=== PATIENT | male | born 1985 | race Hispanic/Latino ===

== ENCOUNTER 2017-11-20 12:23 | Emergency (ER) | payer BC ==
[2017-11-20 12:33] VITALS: BMI 30.2
[2017-11-20] MEDS ORDERED: Albuterol-Ipratrop 3 mg / 0.5 (3 ml) UD INH STA (12:57)
--- NOTE | 2017-11-20 12:57 | ED PDOC ---
History of Present Illness History of Present Illness: 31 year old male presents to the emergency department complaining of a sore throat, cough productive of green phlegm, and fever onset three days ago. Patient states he is also currently nauseous, but denies any vomiting. Patient has noticed dark color to urine as well but denies any dysuria. No abd pain, chest pain or back pain. No recent travel, no known sick contacts. PMD: [facility] HPI: Influenza Time Seen by Provider: 11/20/17 12:36 Chief Complaint: Flu-like Symptoms Chief Complaint (Provider): sore throat, cough, fever History Per: Patient Exam Limitations: no limitations Onset/Duration Of Symptoms: Days (x3) Past Medical History Reviewed: Historical Data, Nursing Documentation, Vital Signs Vital Signs: Last Vital Signs Temp 101.9 F H 11/20/17 12:31 Pulse 85 11/20/17 12:31 Resp 20 11/20/17 12:31 BP 137/69 11/20/17 12:31 Pulse Ox 97 11/20/17 12:31 - Medical History PMH: Asthma Other PMH: leatha miller - Surgical History Surgical History: No Surg Hx - Family History Family History: States: No Known Family Hx - Living Arrangements Living Arrangements: With Friends/Others - Social History Current smoker - smoking cessation education provided: No Alcohol: Occasional Drugs: Cannabis - Home Medications Home Medications: Ambulatory Orders Medication Instructions Recorded Albuterol HFA [Ventolin HFA 90 1 puff IH ASDIR #1 unit 11/20/17 mcg/actuation (8 g)] Azithromycin [Zithromax] 250 mg PO DAILY #6 tab 11/20/17 Benzonatate 200 mg PO TID PRN #20 capsule 11/20/17 Ibuprofen [Motrin Tab] 800 mg PO Q8 PRN #20 tab 11/20/17 - Allergies Allergies/Adverse Reactions: Allergies Allergy/AdvReac Type Severity Reaction Status Date / Time No Known Allergies Allergy Verified 11/20/17 12:30 Review of Systems ROS Statement: Except As Marked, All Systems Reviewed And Found Negative Constitutional: Positive for: Fever, Chills ENT: Positive for: Throat Pain, Throat Swelling Cardiovascular: Negative for: Chest Pain Respiratory: Positive for: Cough (productive of green phlegm) Gastrointestinal: Positive for: Nausea. Negative for: Vomiting, Abdominal Pain , Diarrhea Genitourinary Male: Positive for: Other (dark colored urine). Negative for: Dysuria Neurological: Negative for: Headache, Dizziness Physical Exam - Reviewed Nursing Documentation Reviewed: Yes Vital Signs Reviewed: Yes - Physical Exam Appears: Positive for: Well, Non-toxic Head Exam: Positive for: ATRAUMATIC, NORMAL INSPECTION, NORMOCEPHALIC Skin: Positive for: Normal Color. Negative for: Rash Eye Exam: Positive for: Normal appearance ENT: Positive for: Nasal Congestion, Pharyngeal Erythema, Tonsillar Swelling Cardiovascular/Chest: Positive for: Regular Rate, Rhythm Respiratory: Positive for: Wheezing (bilateral on inhalation and expiration) Gastrointestinal/Abdominal: Positive for: Soft. Negative for: Tenderness, Distended, Guarding, Rebound Back: Negative for: L CVA Tenderness, R CVA Tenderness Extremity: Positive for: Normal ROM Lymphatic: Positive for: Adenopathy (bilateral anterior cervical lymphadenopathy ) Neurologic/Psych: Positive for: Alert, Oriented (x3) Medical Decision Making Medical Decision Making: Time: 12:37 Initial Impression: 31 year old male with URI symptoms Initial Plan: --Influenza A B --Rapid Strep --Throat Culture --Duoneb 3ml INH --CMP --Urine Dip --CBC with differential --Chest X-ray --Motrin 600mg PO --Sodium Chloride 0.9% 1000ml IV --Tylenol 975mg PO --Blood Culture --Throat Culture --Decadron IV 8 mg Neb treatment Pre peak flow: 300 Post peak flow: 350 Wheezing resolved after treatment Patient aware of all diagnostic testing results. He feels better after medications administered in the ED. Repeat temp is 98.3. Rx given for zithromax, tessalon perles, ventolin inhaler and motrin. Advised fluids, rest and follow up with PMD in 2-3 days. Scribe Attestation: Documented by Alina Erazo, acting as a scribe for Macarena Ahuja PA-C. Provider Scribe Attestation: All medical record entries made by the Scribe were at my direction and personally dictated by me. I have reviewed the chart and agree that the record accurately reflects my personal performance of the history, physical exam, medical decision making, and the department course for this patient. I have also personally directed, reviewed, and agree with the discharge instructions and disposition. - Laboratory Results Result Diagrams: 11/20/17 13:00 11/20/17 13:00 Urine dip results: Negative for: Leukocyte Esterase, Blood, Nitrate, Ketones, Glucose, Bilirubin, Protein - ECG O2 Sat by Pulse Oximetry: 97 (RA) Pulse Ox Interpretation: Normal - Other Rad CXR X-Ray: Interpreted by Me, Viewed By Me X-Ray Interpretation: no acute finding Disposition - Clinical Impression Clinical Impression: Tonsillitis, Acute bronchitis - Patient ED Disposition Is Patient to be Admitted: No Counseled Patient/Family Regarding: Studies Performed, Diagnosis, Need For Followup, Rx Given - Disposition Referrals: [facility] [Outside] Disposition: Routine/Home Disposition Time: 14:34 Condition: IMPROVED Additional Instructions: Take rx meds as directed. Rest and drink plenty of fluids. Follow up with primary care doctor in 2-3 days. Prescriptions: Albuterol HFA [Ventolin HFA 90 mcg/actuation (8 g)] 1 puff IH ASDIR #1 unit Azithromycin [Zithromax] 250 mg PO DAILY #6 tab Benzonatate 200 mg PO TID PRN #20 capsule PRN Reason: Cough Ibuprofen [Motrin Tab] 800 mg PO Q8 PRN #20 tab PRN Reason: Pain, Moderate (4-7) Instructions: Sore Throat, Adult (DC), Acute Bronchitis Forms: [facility] (Azerbaijani) Results - Lab Results Lab Results: 11/20/17 11/20/17 11/20/17 13:50 13:00 13:00 WBC 16.0 H RBC 4.77 Hgb 14.0 Hct 41.6 MCV 87.1 MCH 29.4 MCHC 33.8 RDW 13.3 Plt Count 265 MPV 8.7 Neut % (Auto) 79.9 H Lymph % (Auto) 6.3 L Mcdowell % (Auto) 9.3 Eos % (Auto) 4.1 H Baso % (Auto) 0.4 Neut # (Auto) 12.8 H Lymph # (Auto) 1.0 Mcdowell # (Auto) 1.5 H Eos # (Auto) 0.7 Baso # (Auto) 0.1 Neutrophils % (Manual) 85 H Band Neutrophils % 1 Lymphocytes % (Manual) 4 L Monocytes % (Manual) 5 Eosinophils % (Manual) 5 Platelet Estimate Normal RBC Morphology Normal Sodium 139 Potassium 4.0 Chloride 99 Carbon Dioxide 25 Anion Gap 19 BUN 11 Creatinine 1.0 Est GFR ( Amer) > 60 Est GFR (Non-Af Amer) > 60 Random Glucose 122 H Calcium 9.0 Total Bilirubin 0.8 AST 29 ALT 44 Alkaline Phosphatase 54 Total Protein 7.0 Albumin 4.0 Globulin 3.1 Albumin/Globulin Ratio 1.3 Infectious Mcdowell Assay Negative Influenza Typ A,B (EIA) Grp A Beta Strep Ag 11/20/17 11/20/17 13:00 13:00 WBC RBC Hgb Hct MCV MCH MCHC RDW Plt Count MPV Neut % (Auto) Lymph % (Auto) Mcdowell % (Auto) Eos % (Auto) Baso % (Auto) Neut # (Auto) Lymph # (Auto) Mcdowell # (Auto) Eos # (Auto) Baso # (Auto) Neutrophils % (Manual) Band Neutrophils % Lymphocytes % (Manual) Monocytes % (Manual) Eosinophils % (Manual) Platelet Estimate RBC Morphology Sodium Potassium Chloride Carbon Dioxide Anion Gap BUN Creatinine Est GFR ( Amer) Est GFR (Non-Af Amer) Random Glucose Calcium Total Bilirubin AST ALT Alkaline Phosphatase Total Protein Albumin Globulin Albumin/Globulin Ratio Infectious Mcdowell Assay Influenza Typ A,B (EIA) Negative for flu a/b Grp A Beta Strep Ag Negative
[2017-11-20] MEDS ORDERED: Sodium Chloride 0.9% 1,000 ML IV STA ×2 (12:58→13:37)
[2017-11-20] MEDS ORDERED: Albuterol-Ipratrop 3 mg / 0.5 (3 ml) UD ONE (13:00)
[2017-11-20 13:39] LABS: ALB/GLOB RATIO 1.3 (1.0-2.1); ALT/SGPT 44 U/L (21-72); AST/SGOT 29 U/L (17-59); BLOOD UREA NITROGEN 11 mg/dl (9-20); GFR AFRICAN-AMERICAN > 60; GFR NON-AFRICAN AMERICAN > 60
[2017-11-20 13:42] LABS: BASO # 0.1 K/uL (0.0-0.2); BASO % 0.4 % (0.0-2.0); EOS # 0.7 K/uL (0.0-0.7); EOS % 4.1 % (0.0-4.0); LYMPH % 6.3 % (20.0-40.0); MEAN CELL VOLUME 87.1 fl (80.0-94.0); MEAN CORPUSCULAR HEMOGLOBIN 29.4 pg (27.0-31.0); MEAN CORPUSCULAR HGB CONC 33.8 g/dL (33.0-37.0); MEAN PLATELET VOLUME 8.7 fl (7.2-11.7); MONO # 1.5 K/uL (0.0-0.8); MONO % 9.3 % (0.0-10.0); NEUT # 12.8 K/uL (1.8-7.0); NEUT % 79.9 % (50.0-75.0); PLATELET COUNT 265 K/uL (130-400); RBC 4.77 Mil/uL (4.40-5.90); RED CELL DISTRIBUTION WIDTH 13.3 % (11.5-14.5)
[2017-11-20 14:08] LABS: BANDS 1 % (0-2); EOSINOPHIL 5 % (0-7); LYMPHOCYTE 4 % (20-50); MONOCYTE 5 % (0-10); NEUTROPHIL 85 % (42-75); PLATELET ESTIMATE NORMAL (NORMAL); TOTAL CELLS COUNTED 100
[2017-11-20] MEDS ORDERED: Dexamethasone 4 mg/1 ml IV STA (14:20)
[2017-11-20 14:39] VITALS: BP 130/79; PULSE 81; RESP 16; TEMP 98.3
[2017-11-20 14:54] VITALS: O2SAT 97
[2017-11-20] MEDS ORDERED: DiphenhydrAMINE 50 mg/ml Inj IM STA (14:55)
[2017-11-20] MEDS ORDERED: DiphenhydrAMINE 50 mg/ml Inj ONE (14:58)
== END 2017-11-20 15:07 | disposition home or self-care (01) ==
LOC: H.ER 12:23 → EDBD 12:23 → H.ER 15:07
DX: J20.9 Acute bronchitis, unspecified (principal); J03.90 Acute tonsillitis, unspecified; J45.909 Unspecified asthma, uncomplicated
CPT/HCPCS: 71046; 80053; 85025; 86308; 87040; 87070; 87430; 87804; 94640; 96372; 99283; J1100; J1200; J7030